=== PATIENT | male | born 1975 | race Two or more races ===

== ENCOUNTER 2019-08-02 15:08 | Emergency (ER) | payer MEDICAID, OTHER ==
[~2019-08-02] VITALS: Ht 154.9 cm; Wt 77.5 kg
[~2019-08-02 15:08] MED LIST: ALBU6.7H9 INH
[2019-08-02 15:37] VITALS: BP 144/87
[2019-08-02] MEDS ORDERED: SULF1TAB49 PO (17:51)
--- NOTE | 2019-08-02 18:35 | NUR ---
Patient seen and asssess by provider.
--- NOTE | 2019-08-02 18:35 | NUR ---
Wound culture obtained and sent to lab.
== END 2019-08-02 18:39 | disposition home or self-care (01) ==
LOC: ER 15:09
DX: B35.3 Tinea pedis (principal); M79.671 Pain in right foot; F12.90 Cannabis use, unspecified, uncomplicated; Z72.89 Other problems related to lifestyle; Z79.2 Long term (current) use of antibiotics; Z79.899 Other long term (current) drug therapy
CPT/HCPCS: 73660; 87070; 99284

== ENCOUNTER 2024-07-10 09:41 | Emergency (ER) | payer MEDICAID, OTHER ==
[~2024-07-10] VITALS: Ht 175.3 cm; Wt 85.1 kg
[~2024-07-10 09:41] MED LIST changes: +ALBU6.7H14 INH; -ALBU6.7H9 INH
[2024-07-10 09:51] VITALS: BP 139/115; PULSE 63; RESP 18; O2SAT 100
[2024-07-10] MEDS ORDERED: DIAZ-351 PO (10:14)
[2024-07-10] MEDS ORDERED: PRED20TA PO (10:14)
[2024-07-10 10:27] VITALS: TEMP 98.9
== END 2024-07-10 10:28 | disposition home or self-care (01) ==
LOC: ER 09:42
DX: S39.012A Strain of muscle, fascia and tendon of lower back, initial encounter (principal); F12.90 Cannabis use, unspecified, uncomplicated; Z79.899 Other long term (current) drug therapy; Z72.89 Other problems related to lifestyle; X58.XXXA Exposure to other specified factors, initial encounter; Y93.89 Activity, other specified; Y92.89 Other specified places as the place of occurrence of the external cause; Y99.8 Other external cause status
CPT/HCPCS: 99283